=== PATIENT | male | born 1975 | race Caucasian/White ===

== ENCOUNTER 2020-07-09 19:29 | Emergency (ER) | payer OTHER ==
[~2020-07-09] VITALS: Ht 175.3 cm; Wt 132.5 kg
[~2020-07-09 19:29] MED LIST: ALPR0.5T PO; CYCL-331 PO; HYDR-3165 PO; HYDR1TAB10 PO; IBUP600T16 PO
--- NOTE | 2020-07-09 19:32 | PHYS DOC ---
Past History Past Medical History: Hypertension, Other Past Surgical History: Other Alcohol Use: Occasionally Drug Use: Marijuana General Adult HPI: HPI: "..It all started at about 10 today.. Chest discomfort.. goes into my neck... Sore throat... feels tight... I do have high cholesterol.. and my BP as been borderline... I do smoke.. but it has been constant all day....".." I do get anxious some times. Patient is a 44 year old male who presents with above hx and complaints of chest pain, dyspnea, and sore throat. Symptoms started 1000 hrs. today. He has been constant and persistent all day. Patient has been told for he has borderline elevated blood pressure but does not take meds for. Does have a history of elevated cholesterol. Patient does not do flu vaccination since his mother got Manoj-Bernardo from flu vaccination. Patient denies any specific travel outside the [place] area. Patient denies any trauma. No previous history of cardiac disorders. No history of coagulopathy with him or family members. Mother has HTN, Father cancer late 40's. Pt. follows with Dr. Lujan at the [facility]. Patient does smoke tobacco. Review of Systems: Review of Systems: Constitutional: Denies fever or chills Eyes: Denies change in visual acuity HENT: Complaints of nasal congestion. Respiratory: Complaints of dyspnea Cardiovascular: Complaints of chest discomfort GI: Denies abdominal pain, nausea, vomiting, bloody stools or diarrhea : Denies dysuria Musculoskeletal: Denies back pain or joint pain Integument: Denies rash Neurologic: Denies headache, focal weakness or sensory changes Endocrine: Denies polyuria or polydipsia Lymphatic: Denies swollen glands Psychiatric: Denies depression or anxiety Family History: Family History: Mother has hypertension, father of cancer in the late 40s years of age Current Medications: Current Meds: See nursing for details Allergies: Allergies: Allergies Coded Allergies Type Severity Reaction Last Updated Verified No Known Drug Allergies 07/08/14 No Physical Exam: PE: Constitutional: Well developed, well nourished, mild distress, non-toxic appearance. [] HENT: Normocephalic, atraumatic, bilateral external ears normal, oropharynx moist mild injection,, no oral exudates, nose normal. [] Eyes: PERRLA, EOMI, conjunctiva normal, no discharge. [] Neck: Normal range of motion, no tenderness, supple, no stridor. [] Cardiovascular:Heart rate regular rhythm, no murmur [] Lungs & Thorax: Bilateral breath sounds equal apex with scattered wheezes auscultation [] Abdomen: Bowel sounds normal, soft, no tenderness, no masses, no pulsatile masses. [] Skin: Warm, dry, no erythema, no rash. Multiple tattoos Back: No tenderness, no CVA tenderness. [] Extremities: No tenderness, no cyanosis, no clubbing, ROM intact, no edema. No cording Neurologic: Alert and oriented X 3, moves all extremities on request has distal sensory,, no focal deficits noted. [] Psychologic: Affect anxious, judgement normal, mood normal. [] EKG: EKG: My interpretation of EKG shows a sinus rhythm with a wavering baseline due to movement . No findings of obvious acute STEMI of contralateral changes. [] Radiology/Procedures: Radiology/Procedures: [][place] [address] IMAGING REPORT Signed PATIENT: DANETTE LANDEROS ACCOUNT: [id number] : 1975 LOCATION: ER AGE: 44 SEX: M EXAM STATUS: REG ER ORD. PHYSICIAN: CHARLES HAWK MD REASON: cp PROCEDURE: CHEST PA & LATERAL PA and lateral chest. HISTORY: Chest pain PA and lateral views were taken of the chest. There is no pneumothorax or pleural effusion. Heart is normal in size. There are no confluent infiltrates. IMPRESSION: 1. No acute infiltrates. Electronically signed by: Scott Shipman MD (07/09/2020 8:17 PM) [facility] DICTATED AND SIGNED BY: SCOTT SHIPMAN MD DATE: 07/09/202016 CC: CHARLES HAWK MD; PCP,NO ~MTH0 0 Heart Score: HEART Score for Chest Pain: HEART Score for Chest Pain Response (Comments) Value History Slighlty/Non-Suspicious 0 ECG Normal 0 Age < 45 0 Risk Factors 1 or 2 Risk Factors 1 Total 1 Risk Factors: Risk Factors: DM, Current or recent (<one month) smoker, HTN, HLP, family history of CAD, obesity. Risk Scores: Score 0 - 3: 2.5% MACE over next 6 weeks - Discharge Home Score 4 - 6: 20.3% MACE over next 6 weeks - Admit for Clinical Observation Score 7 - 10: 72.7% MACE over next 6 weeks - Early Invasive Strategies Course & Med Decision Making: Course & Med Decision Making Pertinent Labs and Imaging studies reviewed. (See chart for details) Patient refuses strep screen and flu screen is a cannot tolerate getting a nasal or throat [id number] Reviewed labs with patient. Encourage patient stop smoking. Patient advised of his elevated AST and ALT. Patient follow-up with primary care. Patient return if any concerns. Patient currently requesting discharge and refuses admit for observation. Patient encouraged to get flu vaccination. Patient is self isolate the next 10 days. Wear a mask that covers his nose and mouth at all times when he is outside the home. Note computer problems with charting and discharge- system problems. Impression: 1. Viral Syndrome 2. Congestion [] Dragon Disclaimer: Dragon Disclaimer: This electronic medical record was generated, in whole or in part, using a voice recognition dictation system. Departure Departure: Referrals: PCP,NO (PCP) Dragon Disclaimer This chart was dictated in whole or in part using Voice Recognition software in a busy, high-work load, and often noisy Emergency Department environment. It may contain unintended and wholly unrecognized errors or omissions. Dragon Disclaimer This chart was dictated in whole or in part using Voice Recognition software in a busy, high-work load, and often noisy Emergency Department environment. It may contain unintended and wholly unrecognized errors or omissions. CHARLES HAWK MD Jul 09, 2020 19:32
[2020-07-09] MEDS ORDERED: IV RINGERS SOLUTION,LACTATED 1,000 ML IV SCH (19:45)
[2020-07-09] MEDS ORDERED: ASPIRIN CHEWABLE 81 MG TABLET. PO ONE (20:15)
[2020-07-09 20:16] LABS: BASO # 0.1 x10^3/uL (0.0-0.2); BASO % 1 % (0-3); EOS # 0.2 x10^3/uL (0.0-0.7); EOS % 2 % (0-3); HEMATOCRIT 47.1 % (39.0-53.0); HEMOGLOBIN 15.8 g/dL (13.0-17.5); LYMPH % 40 % (24-48); MEAN CORPUSCULAR HEMOGLOBIN 31 pg (25-35); MEAN CORPUSCULAR HGB CONC 34 g/dL (31-37); MEAN CORPUSCULAR VOLUME 93 fL (79-100); MONO # 0.7 x10^3/uL (0.0-1.1); MONO % 7 % (0-9); NEUT # 5.2 x10^3uL (1.8-7.7); NEUT % 52 % (31-73); PLATELET COUNT 184 x10^3/uL (140-400); RED BLOOD COUNT 5.06 x10^6/uL (4.30-5.70); RED CELL DISTRIBUTION WIDTH 14.5 % (11.5-14.5); WHITE BLOOD COUNT 10.1 x10^3/uL (4.0-11.0)
--- NOTE | 2020-07-09 20:20 | RAD ---
PA and lateral chest. HISTORY: Chest pain PA and lateral views were taken of the chest. There is no pneumothorax or pleural effusion. Heart is normal in size. There are no confluent infiltrates. IMPRESSION: 1. No acute infiltrates. Electronically signed by: Scott Shipman MD (07/09/2020 8:17 PM) [facility]
[2020-07-09 20:43] LABS: ALBUMIN 4.1 g/dL (3.4-5.0); CALCIUM 9.5 mg/dL (8.5-10.1); CREATININE 1.2 mg/dL (0.7-1.3); DIRECT BILIRUBIN 0.1 mg/dL (0.0-0.2); GFR 66.4; POTASSIUM 3.9 mmol/L (3.5-5.1); TOTAL BILIRUBIN 0.2 mg/dL (0.2-1.0); TOTAL PROTEIN 7.2 g/dL (6.4-8.2)
[2020-07-09 22:10] LABS: CLARITY,URINE CLEAR; COLOR,URINE YELLOW
[2020-07-09 22:11] LABS: BACTERIA,URINE 0 /HPF (0-FEW); BILIRUBIN,URINE NEG (NEG); GLUCOSE,URINE NEG (NEG); NITRITE,URINE NEG (NEG); RBC,URINE 0 /HPF (0-2); UROBILINOGEN,URINE 0.2 mg/dL (0.2 mg/dL); WBC,URINE 0 /HPF (0-4)
[2020-07-09 22:13] LABS: BARBITURATES NEG (NEG); BENZODIAZEPINES NEG (NEG); CANNABINOIDS POS (NEG); COCAINE NEG (NEG); METHADONE NEG (NEG); OPIATES NEG (NEG); PHENCYCLIDINE NEG (NEG)
[2020-07-09 22:14] LABS: AMPHETAMINE/METHAMPHETAMINE NEG (NEG)
[2020-07-09 22:45] VITALS: BP 136/75
--- NOTE | 2020-07-10 05:33 | EKG ---
[address] [address] Test Date: 2020-07-09 Test Time: 19:46:21 Pat Name: DANETTE LANDEROS Department: Room: Gender: M Public Information Officer: : 1975 Requested By: CHARLES HAWK Order Number: [id number] Reading MD: Jose Daniel Bear Measurements Intervals [place] Rate: 96 P: -77 NC: 140 QRS: 27 QRSD: 90 T: 27 QT: 354 QTc: 448 Interpretive Statements SINUS RHYTHM NORMAL ECG RI6.02 No previous ECG available for comparison Electronically Signed On 07-12-2020 10:50:44 [facility] [employer] by Jose Daniel Bear
== END 2020-07-09 23:00 | disposition home or self-care (01) ==
LOC: ER 19:29
DX: B34.9 Viral infection, unspecified (principal); R09.81 Nasal congestion; I10 Essential (primary) hypertension; F12.10 Cannabis abuse, uncomplicated
CPT/HCPCS: 36415; 71046; 80048; 80076; 80307; 81001; 82550; 83690; 83735; 83880; 84443; 84484; 85025; 85379; 85610; 85730; 93005; 96360; 99285; J7120